=== PATIENT | female | born 1985 | race Caucasian/White ===

== ENCOUNTER 2018-02-26 00:17 | Inpatient (IN) | payer OTHER ==
[2018-02-26] VITALS (31 sets, daily range): BP systolic 88–122; BP diastolic 37–78
[~2018-02-26] VITALS: Ht 167.6 cm; Wt 55.6 kg
--- NOTE | ~2018-02-26 | HC ---
[facility] [place] [address] CONSULTATION Name: GERMAINE NULL Room #: 243-P [facility] IN M.R.#: [id number] Admission: 02/26/18 Attend Phys: Kamron Singleton Discharge: Date of : 85 Report #: [id number] THIS REPORT FOR: //name// CC: FAM unknown Kamron Galindo DATE OF SERVICE: 02/26/2018 HISTORY OF PRESENT ILLNESS: This is a 32-year-old female patient who is unable to provide any reliable history. The patient is still drowsy. She wakes up and able to say a few things, but she still is very drowsy to provide any reliable history. I have 2 numbers on the patient's chart. I have the number for patient's boyfriend. Nobody picks up that phone when I called that number. I have the number for the patient's mother and I called her and I was able to talk to her. The history I get from the mother is that this patient has a lifelong history of seizure disorder. She apparently had a cerebral palsy, but she is functional. She has trouble with her hands and she is not able to write well. She has been to special classes during the school. She also has developed a lot of psychiatric issues. She lives with her boyfriend who according to the mother also has psychiatric issues. The patient has two type of seizures. She has grand mal seizures. Those are not very common and the last grand mal seizure was more than 1 year ago. She has what they call complex partial seizures. She said she got one of them every couple of months. During that episode, she does not know what she is doing. She is on multiple medications. She follows up at [facility] with an epileptologist as I understand from the family. The patient's medications include phenobarbital, Dilantin, Keppra on 2000 b.i.d., Vimpat on 200 b.i.d. She is also on folic acid. Her compliance is not reliable. When I asked her does she take her medication regularly, she said she might be missing in between. Her Dilantin level is low at 1.7. Mother is concerned about her gums and teeth. She indicates that she may not smile because of gums and teeth problem because of Dilantin. As I understand, she received Ativan in the Emergency Room and she may have received Ativan prior to that. REVIEW OF SYSTEMS: Positive for cerebral palsy. I asked the patient's mother whether other things like vagus nerve stimulator or other surgery has been considered. She indicated that vagus nerve stimulator was considered, but they decided not to proceed with this some time ago, but she is having second thoughts about that. One of the records also indicate that she has abuse of antidepressant and I cannot get any history in that regard. I carried out as well as I could the 14-point review of system and this is all I can get from the record as well as the patient. [address] [address] CONSULTATION Name: GERMAINE NULL Room #: 243-P ADM IN M.R.#: [id number] Admission: 02/26/18 Attend Phys: Kamron Singleton Discharge: Date of : 85 Report #: [id number] PAST MEDICAL HISTORY: Positive for what looks like intractable seizure, but some of them appeared to be partial complex seizure. I do not know the history because she goes to [facility]. FAMILY HISTORY: Unremarkable. SOCIAL HISTORY: According to the mother and the patient, she does not drink any alcohol or smoke. At this time, she had recurrent seizures before she was given the medication and does not look like she had any further seizure. PHYSICAL EXAMINATION: The patient's examination was pretty limited. She is sleepy, but she can be awakened. She is quite sleepy and that makes the examination very difficult. She was able to tell me some history. When I pushed her, she was able to move her eyes in multiple directions. That is all the examination I can do at the moment. She is not cooperative enough to do any further examination. She does not have any respiratory difficulty. LABORATORY DATA: Indicate a white count is up at 13.7, she has slight fever and she has increased WBC count. The mother has indicated that grand mals are always triggered by some systemic infection. IMPRESSION: 1. Breakthrough seizure because of a trigger of systemic infection as well as probable noncompliance because Dilantin level was only 1.7. 2. Intractable seizure for a long time. 3. Drowsiness, which is probably postictal, some encephalopathy secondary to urinary tract infection and the medication. The patient is on phenobarbital and she also got some Ativan for recurrent seizure. We need to watch her closely both for drowsiness as well as any respiratory suppression. RECOMMENDATIONS: 1. We will get an EEG done. 2. The best I can tell, she did not get any Vimpat last night. She got some Keppra, but not on the full dose. I discussed with the nurses that if she is able to swallow, we should restart the medication as soon as possible. I also asked speech therapy to address that question. If she is not able to swallow, we need to give those medications IV to her. Her infection need to be controlled. We should try to avoid Ativan if at all possible in this patient because combination of phenobarbital and Ativan suppress the respirations pretty significantly and a lot of time required intubation. The patient is also suspect for aspiration as they can aspirate with a seizure and better examination will be done once the patient wake up some. [facility] [address] [place] [address] CONSULTATION Name: GERMAINE NULL Room #: 243-P [facility] IN M.R.#: [id number] Admission: 02/26/18 Attend Phys: Kamron Singleton Discharge: Date of : 85 Report #: [id number] I had a long discussion with the family and I told them that we will be treating only acute condition and long-term management need to be addressed by her epileptologist at [facility] and they need to discuss with them about readjusting the anticonvulsant, vagus nerve stimulator or any other surgery because we do not have any facility to do that. More than 50 minutes of time was spent taking care of this patient and majority of that time was spent counseling the family as well as coordinating her care. <ELECTRONICALLY SIGNED> By: Pilo Galindo MD 02/26/18 1737 [id number] Pilo Galindo MD /nt
--- NOTE | ~2018-02-26 | EEG ---
[facility] [place] [address] ELECTROENCEPHALOGRAM Name: GERMAINE NULL Room #: 430-P [facility] IN M.R.#: [id number] Admission: 02/26/18 Attend Phys: Jose Novoa MD Discharge: 02/28/18 Date of : 85 Report #: [id number] THIS REPORT FOR: //name// CC: FAM unknown Kamron Areli Galindo DATE OF SERVICE: 02/26/2018 This patient was admitted with recurrent seizure. EEG was done by placing the electrode by standard 10/20 system of electrode placement. Background activity goes up to about 10 Hz and 30 microvolts. Most of the EEG was obtained when the patient was asleep and that demonstrated bilaterally symmetrical sleep spindle, vertex sharp waves as well as K complexes. Photic stimulation is unremarkable. No active epileptiform activity was noticed. IMPRESSION: This patient's EEG does not demonstrate any clear-cut epileptiform activity. Thank you very much for this referral. <ELECTRONICALLY SIGNED> By: Pilo Galindo MD 03/01/18 1712 1149 [id number] Pilo Galindo MD /nt
[~2018-02-26 00:17] MED LIST: ASPIR 8181 MG PO; ATIVAN1 MG PO; CETIRIZINE HCL10 MG PO; DILANTIN100 MG PO; FOLIC ACID 1 MG1 MG PO; IRON325 M1 PO; KEPPRA 500 MG500 M1 PO; NAPROSYN500 MG PO; ONDANSETRON HCL4 M2 PO; PHENOBARBITAL97.2 M2 PO; PROAIR RESPICL90 MCG INH; RANITIDINE 150150 M1 PO; TESSALON PERLE100 MG PO; VIMPAT200 MG PO; ZOFRAN ODT4 MG PO
[2018-02-26 01:15] LABS: URINE BILIRUBIN NEGATIVE (Negative); URINE BLOOD 2+ (Negative); URINE CLARITY CLEAR; URINE COLOR YELLOW; URINE GLUCOSE-RANDOM* NEGATIVE (Negative); URINE KETONES TRACE (Negative); URINE NITRITE-REFLEX NEGATIVE (Negative); URINE PROTEIN (DIPSTICK) 1+ (Negative); URINE SPECIFIC GRAVITY >= 1.030 (1.005-1.035)
[2018-02-26 01:17] LABS: URINE LEUKOCYTES-REFLEX TRACE (Negative)
[2018-02-26 01:25] LABS: ABSOLUTE NEUTROPHILS 11.8 thou/uL (1.4-8.2); BASOPHILS 0.5 % (0.0-2.0); HEMATOCRIT 39.2 % (37.0-47.0); HEMOGLOBIN 13.1 gm/dL (12.0-15.0); LYMPHOCYTES 7.4 % (24.0-44.0); MCHC 33.4 g/dL (28.0-37.0); MCV 95.9 fL (80.0-100.0); MONOCYTES 5.3 % (1.0-8.0); PLATELET COUNT 307 thou/uL (150-400); POLYS 86.8 % (36.0-66.0); RBC 4.08 mil/uL (4.20-5.00); RDW 14.6 % (10.5-14.5); WBC 13.7 thou/uL (4.0-11.0)
[2018-02-26 01:25] LABS: AMP/METHAMP Negative (Negative); BARBITURATES POSITIVE (Negative); BENZODIAZEPINES Negative (Negative); COCAINE Negative (Negative); HYALINE CASTS 0-3 Few /LPF (None Seen); METHADONE Negative (Negative); MUCUS >6 Heavy strn/LPF (None Seen); OPIATES Negative (Negative); PCP Negative (Negative); URINE RBC 3-10 Few /HPF (0-2)
[2018-02-26 01:26] LABS: CRYSTALS None Seen /LPF (None Seen); SQUAMOUS 4-10 Moderate /LPF (0-3); TRANSITIONAL EPITHEL CELL 0-3 Few /LPF (None Seen)
[2018-02-26] MEDS ORDERED: DILANTIN100 MG PO (01:41)
[2018-02-26] MEDS ORDERED: ZANAFLEX2 MG PO (01:42)
[2018-02-26 01:43] LABS: CALCIUM 9.3 mg/dL (8.5-10.1); POTASSIUM 3.6 mmol/L (3.5-5.1)
[2018-02-26] MEDS ORDERED: CLARITIN10 MG PO (01:43)
[2018-02-26 01:49] LABS: TOTAL BILIRUBIN 0.3 mg/dL (<0.1-1.0); TOTAL PROTEIN 6.8 g/dL (6.4-8.2)
[2018-02-27] VITALS: BP 94/52
[2018-02-27 03:50] VITALS: BP 96/63
[2018-02-27 04:44] VITALS: BP 106/60
[2018-02-27 07:47] VITALS: BP 118/72
[2018-02-27 11:42] LABS: HEMATOCRIT 35.9 % (37.0-47.0); HEMOGLOBIN 12.2 gm/dL (12.0-15.0); MCH 32.5 pg (26.0-34.0); MCV 95.7 fL (80.0-100.0); RBC 3.75 mil/uL (4.20-5.00); RDW 14.1 % (10.5-14.5)
[2018-02-27 11:55] LABS: ALBUMIN 3.6 g/dL (3.4-5.0); CALCIUM 8.8 mg/dL (8.5-10.1); CREATININE 0.6 mg/dL (0.6-1.0); TOTAL BILIRUBIN 0.3 mg/dL (<0.1-1.0); TOTAL PROTEIN 6.6 g/dL (6.4-8.2)
[2018-02-27 16:26] VITALS: BP 125/76
[2018-02-27 19:33] VITALS: BP 112/65
[2018-02-28 04:07] VITALS: BP 116/69
[2018-02-28 12:04] LABS: TSH 3.105 uIU/mL (0.358-3.740)
[2018-02-28] MEDS ORDERED: CIPROFLOXIN HC2.5 M1 OPHTHALMIC (13:37)
[2018-02-28] MEDS ORDERED: KEFLEX500 M2 PO (13:38)
[2018-02-28 14:25] VITALS: BP 116/69
== END 2018-02-28 15:35 | disposition home or self-care (01) | DRG 100 ==
LOC: ER 00:17 → EROBS 01:25 → ER 01:25 → EROBS 01:52 → 4E 01:52 → ICU 02:41 → 4E 02-27 04:17 → ENTRNSPT 02-28 15:05 → EDTRNSPTSTS 02-28 15:07 → 4E 02-28 15:35
PROVIDERS: Emergency Medicine; Internal Medicine; Psychiatry & Neurology Neuromuscular Medicine
DX: G40.909 Epilepsy, unspecified, not intractable, without status epilepticus (principal); G92 Toxic encephalopathy; N39.0 Urinary tract infection, site not specified; E87.2 Acidosis; S00.12XA Contusion of left eyelid and periocular area, initial encounter; G80.9 Cerebral palsy, unspecified; B99.9 Unspecified infectious disease; H10.89 Other conjunctivitis; X58.XXXA Exposure to other specified factors, initial encounter; Y93.89 Activity, other specified; Y92.89 Other specified places as the place of occurrence of the external cause; Y99.8 Other external cause status; Z79.899 Other long term (current) drug therapy; Z28.21 Immunization not carried out because of patient refusal
CPT/HCPCS: 10078; 10783

== ENCOUNTER 2020-08-21 09:28 | Inpatient (IN) | payer OTHER ==
[~2020-08-21] VITALS: Ht 154.9 cm; Wt 70.8 kg
--- NOTE | ~2020-08-21 | HC ---
[facility] [place] [address] CONSULTATION Name: GERMAINE NULL Room #: 360-P [facility] IN M.R.#: [id number] Admission: 08/21/20 Attend Phys: Kory Cortés MD Discharge: 08/23/20 Date of : 85 Report #: [id number] THIS REPORT FOR: cc: Nikita Galindo. Ratnesh. MD Rico Garcia Parveen K. MD ~ DOC #: [id number] Pilo Gómez MD DATE OF SERVICE: 08/22/2020 HISTORY OF PRESENT ILLNESS: This is a 35-year-old female patient who was evaluated by me for seizure. It is very difficult to evaluate this patient because she says she does not remember anything about the seizure. She said she lives with her roommate, but I cannot reach the roommate. So, I reviewed the records and it looks like from H and P, she was admitted with catatonic state. This patient had some stressors going on at that time and she was noticed to have multiple seizures. ____ account of those seizures are not available. In any event, this patient is doing fine. She says she sees an epileptologist at [facility]. She is on multiple medications. She does not have any vagus nerve stimulator, but she is on phenytoin, phenobarbital, Keppra, and she indicates that medications are being readjusted by his epileptologist. She is also on a psychiatric medication. When I tried to ask her how many seizures she gets in a month or six months, she did not answer. She basically says she does not know. REVIEW OF SYSTEMS: When I asked did she go to high school, she said she did and she graduated. Some question of cerebral palsy is there and I tried to elicit more history, but I cannot get any more history in this patient. After talking to her for a while, that is all 14-point review of system I can get in this patient. PAST MEDICAL HISTORY: Positive for seizure. When I asked her whether her epileptologist think whether all her seizures are epileptic seizure or some of them are nonepileptiform events, she says that they are all epileptiform event. SOCIAL HISTORY: She lives with a roommate and she says she does not drink alcohol or do any drugs. PHYSICAL EXAMINATION: GENERAL: She is alert. She is responsive. Her speech looks intact. I do not know what her baseline memory is. NEUROLOGIC: Cranial nerve examination II-XII and neuromuscular the best I can tell looks unremarkable. Her cooperation was not very good. There is no meningeal sign. I could not look at the patient's fundus. VITAL SIGNS: Blood pressure is 110/70, respirations 17, pulse is 74, temperature is 98.9. [address] [address] CONSULTATION Name: GERMAINE NULL Room #: 360-P [facility] IN ..#: [id number] Admission: 08/21/20 Attend Phys: Kory Cortés MD Discharge: 08/23/20 Date of : 85 Report #: [id number] LABORATORY DATA: White count is 4. Sodium was normal. Calcium was trace low and magnesium was normal. IMPRESSION: Very difficult to tell in this patient whether all her seizures are epileptic seizure or some of them was pseudoseizures. I do not have any records on her either. I will suggest getting an EEG done. There is some note to the fact that she was not taking her epileptiform medications for a few days before the seizures started. I do not think we should change anything until the EEG shows some drastic finding and does lot of followup with her epileptologist at [facility] because her medications need to be readjusted and they may consider and may have already considered something like vagus nerve stimulator. We will talk to you about the patient tomorrow. Thank you very much for this referral. MD HONG Nugent/ANGELICA By: 07 00 Pilo Gómez MD /miky
--- NOTE | ~2020-08-21 | EEG ---
[facility] [place] [address] ELECTROENCEPHALOGRAM Name: GERMAINE NULL Room #: 360-[facility] IN M.R.#: [id number] Admission: 08/21/20 Attend Phys: Kory Cortés MD Discharge: 08/23/20 Date of : 85 Report #: [id number] THIS REPORT FOR: //name// DOC #: [id number] Pilo Gómez MD This patient is being evaluated for seizure. This patient's EEG is masked by a lot of fast beta activity and that is probably because of phenobarbital she is on. Because of that, background activity is difficult to determine. It appeared to be about 8-9 Hz and 30 microvolts. Photic stimulation is unremarkable. The patient went to sleep that is associated with bilateral slowing and vertex sharp waves. IMPRESSION: Fast beta activity, which is most likely because of anticonvulsant, especially phenobarbital. There appeared to be some sporadic sharper activity arising from frontal areas on both sides that is difficult to separate from the artifact. No marked seizure activity was noticed during this record. Clinical correlation is recommended. Thank you very much for this referral. Pilo Gómez MD PK/MAX By: 1636 1810 Pilo Gómez MD /nt
[~2020-08-21 09:28] MED LIST changes: +CIPROFLOXIN HC2.5 M1 OPHTHALMIC; +CLARITIN10 MG PO; +KEFLEX500 M2 PO; +ZANAFLEX2 MG PO
[2020-08-21 09:32] VITALS: BP 112/72
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
[2020-08-21 11:10] LABS: ANION GAP 8 mmol/L (7-16); BUN 11 mg/dL (7-18); CALCIUM 9.1 mg/dL (8.5-10.1); CHLORIDE 104 mmol/L (98-107); CO2 28 mmol/L (21-32); CREATININE 0.7 mg/dL (0.6-1.0); GLUCOSE 120 mg/dL (74-106); POTASSIUM 3.5 mmol/L (3.5-5.1); SODIUM 140 mmol/L (136-145)
[2020-08-21 11:14] LABS: URINE BLOOD 3+ (Negative); URINE CLARITY CLEAR; URINE COLOR YELLOW; URINE GLUCOSE-RANDOM* NEGATIVE (Negative); URINE KETONES 1+ (Negative); URINE LEUKOCYTES-REFLEX TRACE (Negative); URINE NITRITE-REFLEX NEGATIVE (Negative); URINE PROTEIN (DIPSTICK) TRACE (Negative); URINE SPECIFIC GRAVITY 1.025 (1.005-1.035)
[2020-08-21 11:17] LABS: ICTOTEST (BILI CONFIRMATORY) Negative (Negative); URINE BILIRUBIN NEGATIVE (Negative)
[2020-08-21 11:18] LABS: ALBUMIN 4.2 g/dL (3.4-5.0); SALICYLATE < 2.8 mg/dL (2.8-20.0); SGOT 25 U/L (15-37); SGPT 27 U/L (14-59); TOTAL BILIRUBIN 0.5 mg/dL (0.2-1.0); TOTAL PROTEIN 7.4 g/dL (6.4-8.2)
[2020-08-21 11:30] LABS: AMP/METHAMP Negative (Negative); BARBITURATES POSITIVE (Negative); BENZODIAZEPINES POSITIVE (Negative); COCAINE Negative (Negative); METHADONE Negative (Negative); OPIATES Negative (Negative); PCP Negative (Negative)
[2020-08-21] MEDS ORDERED: FISH OIL 1,0001 EAC9 PO (11:33)
[2020-08-21] MEDS ORDERED: DILANTIN 100 M100 MG PO ×2 (11:35)
[2020-08-21] MEDS ORDERED: SERTRALINE HCL100 MG PO (11:36)
[2020-08-21] MEDS ORDERED: PHENOBARBITAL97.2 M2 PO (11:36)
[2020-08-21] MEDS ORDERED: ZANAFLEX2 M1 PO (11:37)
[2020-08-21] MEDS ORDERED: ASA81BEC PO (11:38)
[2020-08-21] MEDS ORDERED: FUROSEMIDE 20 M20 MG PO (11:38)
[2020-08-21] MEDS ORDERED: POTASSIUM20 PO (11:38)
[2020-08-21] MEDS ORDERED: DILANTIN30 MG PO (11:39)
[2020-08-21 11:40] LABS: CASTS None Seen /LPF (None Seen); MUCUS 0-3 Light strn/LPF (None Seen); SQUAMOUS 4-10 Moderate /LPF (0-3)
[2020-08-21] MEDS ORDERED: SYMPAZAN10 MG PO (11:40)
[2020-08-21] MEDS ORDERED: KEPPRA 500 MG500 MG PO (11:40)
[2020-08-21 11:41] LABS: BACTERIA-REFLEX None Seen /HPF (None Seen); CRYSTALS None Seen /LPF (None Seen); URINE RBC 1-2 Rare /HPF (NONE SEEN); URINE WBC-REFLEX 0-5 Rare /HPF (0-5)
[2020-08-21] MEDS ORDERED: FOLIC ACID1 MG PO (11:41)
[2020-08-21] MEDS ORDERED: ATIVAN0.5 M1 PO (11:52)
[2020-08-21 12:18] LABS: ABSOLUTE NEUTROPHILS 8.9 thou/uL (1.4-8.2); BASOPHILS 0.3 % (0.0-2.0); HEMATOCRIT 40.6 % (37.0-47.0); HEMOGLOBIN 13.6 gm/dL (12.0-15.0); LYMPHOCYTES 6.5 % (24.0-44.0); MCH 32.4 pg (26.0-34.0); MCHC 33.5 g/dL (28.0-37.0); MCV 96.7 fL (80.0-100.0); MONOCYTES 7.7 % (1.0-8.0); PLATELET COUNT 381 thou/uL (150-400); POLYS 85.5 % (36.0-66.0); RDW 13.6 % (10.5-14.5); WBC 10.5 thou/uL (4.0-11.0)
--- NOTE | 2020-08-21 12:45 | NUR ---
PATIENT MOTHER/ GUARDIAN CALLED ASKING FOR AN UPDATE ON PATIENT. PATIENT MOTHER REPORTED THAT SHE IS "SUPRISED" THAT PATIENT IS "AWARE" RIGHT NOW. REPORTS THAT WE NEED TO BE ON ALERT FOR A "BREAK THRU SEZIURE".
--- NOTE | 2020-08-21 14:40 | NUR ---
YESSY (CAREGIVER) LEFT TO GO HOME AND REST, LEFT NUMBER. PHONE: [phone]
[2020-08-21 16:05] VITALS: BP 99/54
[2020-08-21 16:58] VITALS: BP 105/68
--- NOTE | 2020-08-21 17:11 | NUR ---
NOTIFIED MOM PATIENT ADMITTED TO 260.
--- NOTE | 2020-08-21 17:12 | NUR ---
NOTIFIED MOM PATIENT MOVED TO ROOM 360 AND CHIARA IS HER RN.
[2020-08-21 17:29] VITALS: BP 95/60
[2020-08-21 18:39] VITALS: BP 95/60
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
[2020-08-21 19:36] VITALS: BP 101/56
--- NOTE | 2020-08-21 21:10 | NUR ---
PT SLEEPING IN BED. IVF INTACT. BUE EDEMA. PT EASILY AROUSED FOR MEDS. PT PLEASANT AND SMILES AND LAUGHS WHEN AWAKENED. SEIZURE PRECAUTIONS, BED ALARM ON. PT DECLINED HS SNACK.
[2020-08-22 03:39] VITALS: BP 92/44
--- NOTE | 2020-08-22 05:17 | NUR ---
PT VERY IMPULSIVE AND UNSTEADY WHEN WALKING TO BATHROOM THIS AM. BED ALARM ON.
[2020-08-22 05:48] LABS: ABSOLUTE NEUTROPHILS 1.9 thou/uL (1.4-8.2); BASOPHILS 1.2 % (0.0-2.0); EOSINOPHILS 2.4 % (0.0-3.0); HEMATOCRIT 35.5 % (37.0-47.0); LYMPHOCYTES 36.4 % (24.0-44.0); MCH 32.7 pg (26.0-34.0); MCHC 33.7 g/dL (28.0-37.0); MONOCYTES 11.3 % (1.0-8.0); POLYS 48.7 % (36.0-66.0); RBC 3.66 mil/uL (4.20-5.00); RDW 13.9 % (10.5-14.5)
[2020-08-22 05:53] LABS: PLATELET COUNT 281 thou/uL (150-400)
[2020-08-22 06:03] LABS: CALCIUM 8.2 mg/dL (8.5-10.1); CREATININE 0.7 mg/dL (0.6-1.0); MAGNESIUM 2.1 mg/dL (1.8-2.4); POTASSIUM 3.6 mmol/L (3.5-5.1)
--- NOTE | 2020-08-22 07:01 | EKG ---
[address] [place] [address] ELECTROCARDIOGRAM REPORT Name: GERMAINE NULL Room #: 360- [facility] IN M.R.#: [id number] Admission: 08/21/20 Attend Phys: Kory Cortés MD Discharge: Date of : 85 Report #: [id number] [facility] ED Test Date: 2020-08-21 Test Time: 10:19:43 Pat Name: GERMAINE NULL Department: Room: 360 Gender: F Telephone Operator Receptionist: abdiel : 1985 Requested By: Jonathon Reed Order Number: [id number] MD: Jeb Good Measurements Intervals Boon Rate: 98 P: 55 NV: 144 QRS: 50 QRSD: 77 T: 6 QT: 353 QTc: 451 Interpretive Statements Sinus rhythm Probable left atrial enlargement RSR' in V1 or V2, probably normal variant Borderline T abnormalities, anterior leads No previous ECG available for comparison Electronically Signed On 08-22-2020 7:01:47 CDT by Jeb Good [email or web address] <ELECTRONICALLY SIGNED> By: Jeb Good MD, [facility] 08/22/20 0701 1019 1019 Jeb Good MD, FACC /EPI
[2020-08-22 07:24] VITALS: BP 93/59
[2020-08-22 11:22] VITALS: BP 101/59
[2020-08-22 15:20] VITALS: BP 107/64
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
[2020-08-22 19:25] VITALS: BP 110/70
[2020-08-23] VITALS (9 sets, daily range): BP systolic 89–103; BP diastolic 56–65
--- NOTE | 2020-08-23 04:22 | NUR ---
ENCOURAGED HER TO CALL FOR ASSIST OUT OF BED. SHE WILL GET UP AND REMAIN CONTINENT IF OFFERED THE RESTROOM. NEEDS ENCOURAGING TO DRINK FLUIDS. BP THIS AM 89/57. RESTING QUIETLY, AT THIS TIME.
--- NOTE | 2020-08-23 15:25 | NUR ---
DISCHARGE NOTE: MIKHAIL reviewed chart and spoke with nursing and attending physician. Pt is medically stable for discharge home today. MIKHAIL met with pt and friend/caregiver, Dhaval, at bedside to discuss discharge plan. Recommendation for HH services. MIKHAIL explained that Medicaid will cover HH RN visits to assist with medication mgmt. MIKHAIL confirmed pt's home address. MIKHAIL discussed case with [facility] liaison, who states they are able to accept pt on service. Pt's PCP is Dr. Nikita Galindo at [facility]. MIKHAIL faxed finalized discharge orders/summary to HH. Contact info for HH placed in pt's discharge summary. MIKHAIL spoke with pt's mother/legal guardian, Tosha, via phone to provide update and discuss discharge plan. Tosha is aware and in agreement with discharge plan. Tosha requests pt's follow up neurology appt be scheduled prior to discharge, as Dhaval called and the earliest available appt was in December. Tosha also requested that Dhaval be provided with copy of pt's guardianship ppwk. MIKHAIL explained that a request can be made through Medical Records. Pt's mother states that [facility] is also mailing her a copy. Pt's mother requests that med list be reviewed with Dhaval prior to discharge. Pt does not have any new scripts. Pt's mother is aware that HH will come see pt after discharge. MIKAHIL placed to call to [facility]' Neurology office. The earliest appt with Dr. Johnson is February 03 at 1230. Pt has been placed on the cancellation list, should an appointment become available sooner. MIKHAIL placed this info in pt's discharge summary. MIKHAIL spoke with Velvet at [facility] regarding pt's discharge. Velvet states [facility] Will follow up with pt after discharge. MIKHAIL provided update to Velvet regarding conversations with pt's mother/legal guardian. Contact info for pt's mother provided to Velvet. Dhaval to provide transportation home. No additional MIKHAIL needs identified at this time, but is available to assist should needs arise.
== END 2020-08-23 16:01 | disposition home health service (06) | DRG 101 ==
LOC: ER 09:28 → EROBS 13:15 → 3W 13:15
PROVIDERS: Emergency Medicine; Nurse Practitioner; ADMIT Hospitalist; ATTEND Hospitalist
DX: R56.9 Unspecified convulsions (principal); G80.9 Cerebral palsy, unspecified; S80.12XA Contusion of left lower leg, initial encounter; S40.012A Contusion of left shoulder, initial encounter; W18.39XA Other fall on same level, initial encounter; Y93.89 Activity, other specified; Y92.89 Other specified places as the place of occurrence of the external cause; Z79.899 Other long term (current) drug therapy; Z79.82 Long term (current) use of aspirin; Y99.8 Other external cause status; Z91.19 Patient's noncompliance with other medical treatment and regimen
CPT/HCPCS: 10879

== ENCOUNTER 2020-08-27 09:38 | Emergency (ER) | payer OTHER ==
[~2020-08-27] VITALS: Ht 162.6 cm; Wt 70.3 kg
[~2020-08-27 09:38] MED LIST changes: +ASA81BEC PO; +ATIVAN0.5 M1 PO; +DILANTIN 100 M100 MG PO; +DILANTIN30 MG PO; +FISH OIL 1,0001 EAC9 PO; +FOLIC ACID1 MG PO; +FUROSEMIDE 20 M20 MG PO; +KEPPRA 500 MG500 MG PO; +POTASSIUM20 PO; +SERTRALINE HCL100 MG PO; +SYMPAZAN10 MG PO; +ZANAFLEX2 M1 PO
[2020-08-27] MEDS ORDERED: AMOXICILLIN875 MG PO (10:48)
[2020-08-27 11:43] VITALS: BP 99/56
== END 2020-08-27 11:43 | disposition home or self-care (01) ==
LOC: ER 09:38
DX: H66.92 Otitis media, unspecified, left ear (principal); Z91.013 Allergy to seafood

== ENCOUNTER 2020-09-29 08:24 | Emergency (ER) | payer OTHER ==
[~2020-09-29] VITALS: Ht 162.6 cm; Wt 70.3 kg
[~2020-09-29 08:24] MED LIST changes: +AMOXICILLIN875 MG PO
[2020-09-29 10:41] LABS: URINE BILIRUBIN NEGATIVE (Negative); URINE BLOOD 1+ (Negative); URINE CLARITY CLOUDY; URINE COLOR YELLOW; URINE GLUCOSE-RANDOM* NEGATIVE (Negative); URINE KETONES NEGATIVE (Negative); URINE NITRITE-REFLEX NEGATIVE (Negative); URINE PROTEIN (DIPSTICK) NEGATIVE (Negative); URINE SPECIFIC GRAVITY 1.015 (1.005-1.035); URINE UROBILINOGEN 0.2 E.U./dl (0.2-1.0)
[2020-09-29 10:42] LABS: URINE LEUKOCYTES-REFLEX 2+ (Negative)
[2020-09-29 10:53] LABS: SQUAMOUS >10 Many /LPF (0-3)
[2020-09-29 10:54] LABS: BACTERIA-REFLEX 1-9 Few /HPF (None Seen); CASTS None Seen /LPF (None Seen); CRYSTALS None Seen /LPF (None Seen); URINE RBC None Seen /HPF (NONE SEEN); URINE WBC-REFLEX 0-5 Rare /HPF (0-5)
[2020-09-29] MEDS ORDERED: ULTRAM 50MG TAB50 MG PO (11:25)
[2020-09-29] MEDS ORDERED: MACROBID 100 M100 M1 PO (11:25)
[2020-09-29 11:42] VITALS: BP 105/55
== END 2020-09-29 11:42 | disposition home or self-care (01) ==
LOC: ER 08:24
PROVIDERS: Emergency Medicine
DX: N39.0 Urinary tract infection, site not specified (principal); Z91.013 Allergy to seafood